=== PATIENT | male | born 1995 | race African-American/Black ===

== ENCOUNTER 2018-08-01 17:58 | Emergency (ER) | payer OTHER ==
[~2018-08-01] VITALS: Ht 172.7 cm; Wt 74.9 kg
[2018-08-01 18:31] VITALS: Ht 172.7 cm; Wt 74.9 kg
--- NOTE | 2018-08-01 22:10 | ERD ---
ER Documentation Chief Complaint Chief Complaint LACERATION HPI 23-year-old male, right-handed, presents to the emergency department, complaining of left thumb laceration that occurred approximately 1 hour prior to arrival. The patient was cooking and accidentally cut himself with a knife. The patient denies distal weakness, numbness or tingling. Tetanus vaccine up-to-date. ROS All systems reviewed and are negative except as per history of present illness. Allergies Allergies: Coded Allergies: No Known Allergy (Unverified , 08/01/18) PMhx/Soc Medical and Surgical Hx: pt denies Medical Hx, pt denies Surgical Hx Hx Alcohol Use: No Hx Substance Use: No Hx Tobacco Use: No Smoking Status: Never smoker FmHx Family History: No diabetes, No coronary disease Physical Exam Vitals Vital Signs Date Temp Pulse Resp B/P (MAP) Pulse Ox O2 O2 Flow FiO2 Time Delivery Rate 08/01/18 98.9 85 16 122/69 97 18:31 (86) Physical Exam Const: No acute distress Head: Atraumatic Eyes: Normal Conjunctiva ENT: Normal External Ears, Nose and Mouth. Neck: Full range of motion. No meningismus. Resp: Clear to auscultation bilaterally Cardio: Regular rate and rhythm, no murmurs Abd: Soft, non tender, non distended. Normal bowel sounds Skin: No petechiae or rashes Back: No midline or flank tenderness Ext: Left hand: Thumb with 1 cm linear laceration, no foreign body seen. Distal neurovascular exam intact Neur: Awake and alert Psych: Normal Mood and Affect Procedures/MDM Vital signs stable, low suspicion for tendon injury, open fracture, foreign body. Neurovascular exam intact. Procedure: Laceration repair The procedure was explained and consent obtained. Anesthesia: none Location: Left thumb Tendon/Joint/Nerves: No injury Foreign body: None detected after copious irrigation and exploration Technique: Tissue adhesive Complexity: No subcutaneous sutures/mucosal repair/edge excision Post Closure Length: 1 cm The patient tolerated the procedure well without complications. clinical impression and possible complications like infection and a scar where discussed with the the patient who agree with management. The patient is stable to be tr eated outpatient and will be discharged home with a Rx for Tylenol, some side effects of prescribed medications (headache, rash, nausea, vomiting, diarrhea, interactions with other medications) were reviewed. The patient was instructed to follow up with the primary care provider in the next 48h. If symptoms persist, worsen or new symptoms develop, then patient should return to the ED immediately. Instructions explained and given directly by me to the patient with acknowledgment and demonstrated understanding. Disclaimer: Inadvertent spelling and grammatical errors are likely due to EHR/dictation software use and do not reflect on the overall quality of patient care. Also, please note that the electronic time recorded on this note does not necessarily reflect the actual time of the patient encounter. Departure Diagnosis: Primary Impression: Laceration of left thumb Condition: Stable Additional Instructions: Thank you very much for allowing us to participate in your care. Your health and safety is our top priority at [facility]. Call your primary care doctor TOMORROW for an appointment during the next 2-4 days and bring all the information and medications prescribed. Have prescriptions filled and follow precisely the directions on the label. If the symptoms get worse and your provider is unavailable, return to the Emergency Department immediately. JAH GOMEZ MD Aug 01, 2018 22:10
[2018-08-01 23:04] VITALS: BP 118/74; PULSE 82; RESP 18
== END 2018-08-01 23:05 | disposition home or self-care (01) ==
LOC: FTE 17:58
DX: S61.012A Laceration without foreign body of left thumb without damage to nail, initial encounter (principal); W26.0XXA Contact with knife, initial encounter; Y92.9 Unspecified place or not applicable
CPT/HCPCS: 12001; Z7502; Z7610